=== PATIENT | male | born 1955 | race Caucasian/White ===

== ENCOUNTER 2020-01-20 11:16 | Emergency (ER) | payer MEDICARE, OTHER ==
[~2020-01-20] VITALS: Ht 177.8 cm; Wt 86.4 kg
--- NOTE | 2020-01-20 12:28 | NUR ---
Wilfredo TOMAS PA AT TRIAGE TO EVALUATE PT
--- NOTE | 2020-01-20 12:39 | NUR ---
KATHI TOM [phone] Addendum: 01/20/20 at 1239 by [email or web address]
--- NOTE | 2020-01-20 12:43 | NUR ---
PT REFERRED TO ER FOR MRI OF LOWER BACK, PT WAS UNABLE TO DO MRI YESTERDAY AT [facility] DESPITE TAKING PO VALIUM AND NORCO... UNABLE TO LIE FLAT FOR TIME TEST REQUIRED, C/O PAIN FROM LEFT HIP DOWN TO LEFT LEG, NO LOSS OF BOWEL/BLADDER. MRI SCREENING SHEET DONE
[2020-01-20] MEDS ORDERED: fentaNYL/PF 50MCG/1 ML 2ML syringe IV ONE (13:00)
[2020-01-20] MEDS ORDERED: diazepam inj 5 MG/ML inj. IV ONE (13:00)
--- NOTE | 2020-01-20 13:50 | NUR ---
PT OUT TO MRI VIA WHEELCHAIR WITH STERILIZATION SPECIALIST
[2020-01-20] MEDS ORDERED: ketorolac trometh. 30mg/ml inj. IV ONE (15:25)
[2020-01-20] MEDS ORDERED: METH-360 PO (15:34)
[2020-01-20 15:55] VITALS: BP 137/77
== END 2020-01-20 15:58 | disposition home or self-care (01) ==
LOC: ER 11:17
DX: M54.5 Low back pain (principal); G89.29 Other chronic pain; E10.42 Type 1 diabetes mellitus with diabetic polyneuropathy; E78.00 Pure hypercholesterolemia, unspecified; Z79.899 Other long term (current) drug therapy
CPT/HCPCS: 72148; 96374; 96375; 99285; J1885; J3010; J3360